=== PATIENT | male | born 1990 | race Caucasian/White ===

== ENCOUNTER 2018-09-07 13:43 | Emergency (ER) | payer OTHER ==
[2018-09-07 13:44] VITALS: BMI 21.2
[2018-09-07] MEDS ORDERED: cefTRIAXone (Rocephin) 250 mg Inj IM STA (14:06)
--- NOTE | 2018-09-07 14:20 | ED PDOC ---
Arrival/HPI - General Chief Complaint: Male Genitourinary Time Seen by Provider: 09/07/18 13:46 Historian: Patient - History of Present Illness Narrative History of Present Illness (Text): 09/07/18 14:15 27 yo male c/o testicular pain x 1 week. States there is a generalized testicular pain with swelling of his testicles. No groin pain. There is while clear discharge he's getting from his penis. He has protected sex typically but recently had oral sex without protection. He denies any abdominal or back pain. No dyuria, frequency or urgency. No fever, chills or bodyaches. PMD: Dr. Live Past Medical History - Provider Review Nursing Documentation Reviewed: Yes - Infectious Disease Hx of Infectious Diseases: None - Tetanus Immunization Tetanus Immunization: Up to Date - Past Medical History Past Medical History: No Previous - Cardiac Hx Cardiac Disorders: No - Pulmonary Hx Respiratory Disorders: No - Neurological Hx Neurological Disorder: No - HEENT Hx HEENT Disorder: No - Renal Hx Renal Disorder: No Hx Kidney Stones: Yes (both side) - Endocrine/Metabolic Hx Endocrine Disorders: No - Hematological/Oncological Hx Blood Disorders: No - Integumentary Hx Dermatological Disorder: No - Musculoskeletal/Rheumatological Hx Musculoskeletal Disorders: No - Gastrointestinal Hx Gastrointestinal Disorders: No - Genitourinary/Gynecological Hx Genitourinary Disorders: No - Psychiatric Hx Psychophysiologic Disorder: No Hx Depression: No Hx Emotional Abuse: No Hx Physical Abuse: No Hx Substance Use: No - Surgical History Hx Appendectomy: Yes Hx Orthopedic Surgery: Yes (thumb tendon) - Suicidal Assessment Feels Threatened In Home Enviroment: No Family/Social History - Physician Review Nursing Documentation Reviewed: Yes Family/Social History: No Known Family HX Smoking Status: Light Smoker < 10 Cigarettes Daily Hx Alcohol Use: Yes Frequency of alcohol use: Socially Hx Substance Use: No Hx Substance Use Treatment: No Allergies/Home Meds Allergies/Adverse Reactions: Allergies amoxicillin Allergy (Verified 09/07/18 13:58) ANAPHYLAXIS peanut Allergy (Verified 09/07/18 13:58) ANAPHYLAXIS Review of Systems - Review of Systems Constitutional: Normal Eyes: Normal ENT: Normal Respiratory: Normal Cardiovascular: Normal Gastrointestinal: Normal. absent: Abdominal Pain Genitourinary Male: Other (testicular pain, testicular swelling, penile discharge) Musculoskeletal: Normal. absent: Back Pain Skin: Normal Neurological: Normal Endocrine: Normal Hemo/Lymphatic: Normal Psychiatric: Normal Physical Exam Vital Signs Temp Pulse Resp BP Pulse Ox 09/07/18 13:56 98.9 F 98 H 18 154/88 H 98 Temperature: Afebrile Blood Pressure: Hypertensive Pulse: Regular Respiratory Rate: Normal Appearance: Positive for: Well-Appearing, Non-Toxic, Comfortable Pain Distress: None Mental Status: Positive for: Alert and Oriented X 3 - Systems Exam Head: Present: Atraumatic, Normocephalic Pupils: Present: PERRL Extroacular Muscles: Present: EOMI Conjunctiva: Present: Normal Mouth: Present: Moist Mucous Membranes Neck: Present: Normal Range of Motion Respiratory/Chest: Present: Clear to Auscultation, Good Air Exchange. No: Respiratory Distress, Accessory Muscle Use Cardiovascular: Present: Regular Rate and Rhythm, Normal S1, S2. No: Murmurs Abdomen: No: Tenderness, Distention, Peritoneal Signs Genitourinary Male: Present: Normal External Genitalia, Circumcised Penis, Testicle Tenderness (b/l), Testicle Swelling (mild). No: Lesions, Penile Discharge, Penile Swelling, Masses, Erythema, Hernias Back: Present: Normal Inspection Upper Extremity: Present: Normal Inspection. No: Cyanosis, Edema Lower Extremity: Present: Normal Inspection. No: Edema Neurological: Present: GCS=15, CN II-XII Intact, Speech Normal, Motor Func Grossly Intact, Normal Sensory Function Skin: Present: Warm, Dry, Normal Color. No: Rashes Psychiatric: Present: Alert, Oriented x 3, Normal Insight, Normal Concentration Medical Decision Making ED Course and Treatment: 09/07/18 14:22 27 yo male with testicular pain and swelling r/o varicocele vs hydrocele r/o STD -- Labs -- GC/CT -- UA -- Rocephin, Azithromycin -- Patient states when he was a baby had an allergy to Amoxicillin but he received Rocephin last time he was here with no reaction. Reviewed previous note and it's recorded he received Rocephin with no allergic reaction. 09/07/18 15:46 Testicular Ultrasound Accession No. : [id number] Creator : Radha Amato MD IMPRESSION: Bilateral epididymal cysts. Small bilateral hydroceles. 09/07/18 16:24 Case was discussed with Dr. Arvizu, Urology, who recommends Flucanzole 200mg daily x 3 days. First does was given here. Patient was explained US report and lab results. He was advised to buy scrotal support as well. He was advised to follow up with Dr. Arvizu, Urology, and he was given Dr. Mackey' cell to call. - RAD Interpretation Radiology Orders: 09/07/18 14:05 TESTES DUPLEX COMPLETE [US] Stat - Medication Orders Current Medication Orders: Discontinued Medications Azithromycin (Zithromax) 1,000 mg PO STAT STA; Protocol Stop: 09/07/18 14:07 Ceftriaxone Sodium (Rocephin) 250 mg IM STAT STA; Protocol Stop: 09/07/18 14:07 Ibuprofen (Motrin Tab) 600 mg PO STAT STA Stop: 09/07/18 14:07 Disposition/Present on Arrival - Present on Arrival Any Indicators Present on Arrival: No History of DVT/PE: No History of Uncontrolled Diabetes: No Urinary Catheter: No History of Decub. Ulcer: No History Surgical Site Infection Following: None - Disposition Have Diagnosis and Disposition been Completed?: Yes Diagnosis: Bilateral hydrocele, Cyst of epididymis, Candidiasis Disposition: HOME/ ROUTINE Disposition Time: 16:26 Patient Plan: Discharge Patient Problems: Current Active Problems Problem Status Onset Bilateral hydrocele Acute Cyst of epididymis Acute Candidiasis Acute Condition: IMPROVED Discharge Instructions (ExitCare): Hydrocele, Screening for Sexually T ransmitted Infections, Yeast Infection (DC) Additional Instructions: EVETTE SIERRA, thank you for letting us take care of you today. Your provider was Edgard Echols DO and you were treated for Hydrocele, Epidydymal Cysts. The emergency medical care you received today was directed at your acute symptoms. If you were prescribed any medication, please fill it and take as directed. It may take several days for your symptoms to resolve. Return to the Emergency Department if your symptoms worsen, do not improve, or if you have any other problems. Please contact your doctor or call one of the physicians/clinics you have been referred to that are listed on the Patient Visit Information form that is included in your discharge packet. Bring any paperwork you were given at discharge with you along with any medications you are taking to your follow up visit. Our treatment cannot replace ongoing medical care by a primary care provider outside of the emergency department. Thank you for allowing the [facility] team to be part of your care today. If you had an X-Ray or CT scan: A Radiologist will review the ED reading if any change in treatment is needed we will contact you. If you had a blood, urine, or wound culture: It will take several days for the results, if any change in treatment is needed we will contact you. If you had an STI test: It will take 48 hours for the results. Please call after 1 week if you have not heard back. Prescriptions: Fluconazole 200 mg PO DAILY #2 tablet Ibuprofen [Motrin] 600 mg PO Q6 PRN #30 tab PRN Reason: Pain, Moderate (4-7) Referrals: Sb Arvizu MD [Staff Provider] - Follow up with primary Forms: [employer] (Chinese), WORK NOTE
[2018-09-07 14:35] LABS: URINE BILIRUBIN NEGATIVE (NEGATIVE); URINE BLOOD SMALL (NEGATIVE); URINE GLUCOSE (UA) NEGATIVE (NEGATIVE); URINE LEUKOCYTE ESTERASE NEGATIVE Leu/uL (NEGATIVE); URINE PROTEIN NEGATIVE mg/dL (<30 mg/dL); URINE UROBILINOGEN 0.2 E.U./dL (<1 E.U./dL)
[2018-09-07 14:36] LABS: URINE APPEARANCE CLEAR (CLEAR); URINE COLOR YELLOW (YELLOW)
[2018-09-07 14:37] LABS: BASO # 0.05 K/mm3 (0.0-2.0); BASO % 0.6 % (0.0-3.0); EOS # 0.1 (0.0-0.7); EOS % 1.4 % (1.5-5.0); GRAN # 4.9 (1.4-6.5); GRAN % 58.9 % (50.0-68.0); HEMOGLOBIN 14.4 g/dL (14.0-18.0); LYMPH # 2.5 (1.2-3.4); LYMPH % 30.3 % (22.0-35.0); MEAN CELL VOLUME 89.9 fl (80.0-105.0); MEAN CORPUSCULAR HEMOGLOBIN 30.4 pg (25.0-35.0); MEAN CORPUSCULAR HGB CONC 33.8 g/dl (31.0-37.0); MEAN PLATELET VOLUME 10.4 fl (7.0-11.0); MONO # 0.7 (0.1-0.6); MONO % 8.8 % (1.0-6.0); RBC 4.74 10^6/uL (3.5-6.1); RED CELL DISTRIBUTION WIDTH 12.6 % (11.5-14.5); WHITE BLOOD COUNT 8.3 10^3/uL (4.5-11.0)
[2018-09-07 14:41] LABS: BLOOD UREA NITROGEN 13 mg/dL (7-21); CALCIUM 10.1 mg/dL (8.4-10.5); GFR NON-AFRICAN AMERICAN > 60
[2018-09-07 14:43] LABS: URINE AMORPHOUS SEDIMENT MODERATE; URINE BACTERIA MANY (NEG); URINE WBC 0 - 2 /hpf (0-6)
--- NOTE | 2018-09-07 15:47 | US ---
Date of service: 09/07/2018 HISTORY: testicular pain TECHNIQUE: Realtime sonography through the scrotum with color and doppler flow. COMPARISON: None Available. FINDINGS: RIGHT TESTICLE: Measures 4.4 x 1.7 x 2.1 cm. Homogeneous echotexture. Blood flow is demonstrated. RIGHT EPIDIDYMIS: 0.4 x 0.3 x 0.4 cm cyst. LEFT TESTICLE: Measures 5.0 x 2.1 x 2.4 cm. Homogeneous echotexture. Blood flow is demonstrated. LEFT EPIDIDYMIS: 0.4 x 0.4 x 0.3 cm cyst. HYDROCELE: Small bilateral hydroceles. VARICOCELE: None. OTHER FINDINGS: None. IMPRESSION: Bilateral epididymal cysts. Small bilateral hydroceles.
[2018-09-07 16:24] VITALS: BP 129/78; PULSE 89; RESP 19; TEMP 98.1; O2SAT 99
== END 2018-09-07 16:24 | disposition home or self-care (01) ==
LOC: ED 13:43
DX: N43.3 Hydrocele, unspecified (principal); N50.3 Cyst of epididymis; B37.9 Candidiasis, unspecified
CPT/HCPCS: 80048; 81001; 85025; 87491; 87591; 93975; 96372; 99283; J0696

== ENCOUNTER 2018-10-19 14:18 | Emergency (ER) | payer OTHER ==
[2018-10-19 14:18] VITALS: BMI 21.2
[2018-10-19] MEDS ORDERED: Sodium Chloride 0.9% 1,000 ML IV STA (14:45)
[2018-10-19 14:46] VITALS: BP 144/90; PULSE 71; RESP 16; TEMP 98.7; O2SAT 99
[2018-10-19] MEDS ORDERED: Atrop/Hyosc/Scopal/PB Elixir (120 ml) PO STA (14:46)
[2018-10-19] MEDS ORDERED: Alum-Mag Hydrox-Simethicone Susp (30 mL) PO STA (14:46)
[2018-10-19 15:06] LABS: BASO # 0.04 K/mm3 (0.0-2.0); BASO % 0.3 % (0.0-3.0); EOS # 0.1 (0.0-0.7); EOS % 0.7 % (1.5-5.0); GRAN # 12.41 (1.4-6.5); GRAN % 86.7 % (50.0-68.0); HEMOGLOBIN 14.2 g/dL (14.0-18.0); LYMPH # 1.2 (1.2-3.4); LYMPH % 8.3 % (22.0-35.0); MEAN CELL VOLUME 91.2 fl (80.0-105.0); MEAN CORPUSCULAR HEMOGLOBIN 30.4 pg (25.0-35.0); MEAN CORPUSCULAR HGB CONC 33.3 g/dl (31.0-37.0); MEAN PLATELET VOLUME 10.5 fl (7.0-11.0); MONO # 0.6 (0.1-0.6); RBC 4.67 10^6/uL (3.5-6.1); RED CELL DISTRIBUTION WIDTH 12.5 % (11.5-14.5); WHITE BLOOD COUNT 14.3 10^3/uL (4.5-11.0)
[2018-10-19 15:14] LABS: ALB/GLOB RATIO 1.8 (1.1-1.8); ALBUMIN 5.1 g/dL (3.0-4.8); ALT/SGPT 40 U/L (7-56); AMYLASE 61 U/L (35-125); AST/SGOT 28 U/L (17-59); BLOOD UREA NITROGEN 9 mg/dL (7-21); CALCIUM 9.8 mg/dL (8.4-10.5); GFR NON-AFRICAN AMERICAN > 60; LIPASE 128 U/L (23-300)
--- NOTE | 2018-10-19 15:38 | ED PDOC ---
Arrival/HPI - General Chief Complaint: Abdominal Pain Time Seen by Provider: 10/19/18 14:29 Historian: Patient - History of Present Illness Narrative History of Present Illness (Text): 10/19/18 14:45 27 year old male, with medical history of appendectomy and endoscopy last year with negative findings, presents to the ED for evaluation of epigastric pain associated with nausea since this morning. Patient reports onset of symptoms after eating breakfast this morning, unchanged after taking antacids. Patient denies any recent changes in diet or sick contact. Patient denies any fever, chills, vomiting, abdominal pain, chest pain, shortness of breath, cough, or any other complaints. Time/Duration: 4-6 hours Symptom Onset: Gradual Symptom Course: Unchanged Activities at Onset: Light Context: Home Past Medical History - Provider Review Nursing Documentation Reviewed: Yes - Infectious Disease Hx of Infectious Diseases: None - Tetanus Immunization Tetanus Immunization: Up to Date - Past Medical History Past Medical History: No Previous - Cardiac Hx Cardiac Disorders: No - Pulmonary Hx Respiratory Disorders: No - Neurological Hx Neurological Disorder: No - HEENT Hx HEENT Disorder: No - Renal Hx Renal Disorder: No Hx Kidney Stones: Yes (both side) - Endocrine/Metabolic Hx Endocrine Disorders: No - Hematological/Oncological Hx Blood Disorders: No - Integumentary Hx Dermatological Disorder: No - Musculoskeletal/Rheumatological Hx Musculoskeletal Disorders: No - Gastrointestinal Hx Gastrointestinal Disorders: No - Genitourinary/Gynecological Hx Genitourinary Disorders: No - Psychiatric Hx Psychophysiologic Disorder: No Hx Depression: No Hx Emotional Abuse: No Hx Physical Abuse: No Hx Substance Use: No - Surgical History Hx Appendectomy: Yes Hx Orthopedic Surgery: Yes (thumb tendon) - Suicidal Assessment Feels Threatened In Home Enviroment: No Family/Social History - Physician Review Nursing Documentation Reviewed: Yes Family/Social History: Unknown Family HX Smoking Status: Light Smoker < 10 Cigarettes Daily Hx Alcohol Use: Yes Frequency of alcohol use: Socially Hx Substance Use: No Hx Substance Use Treatment: No Allergies/Home Meds Allergies/Adverse Reactions: Allergies amoxicillin Allergy (Verified 09/07/18 13:58) ANAPHYLAXIS peanut Allergy (Verified 09/07/18 13:58) ANAPHYLAXIS Review of Systems - Physician Review All systems were reviewed & negative as marked: Yes - Review of Systems Constitutional: absent: Fevers Respiratory: absent: SOB, Cough Cardiovascular: absent: Chest Pain Gastrointestinal: Abdominal Pain, Nausea. absent: Diarrhea, Vomiting Genitourinary Male: absent: Dysuria, Urinary Output Changes Musculoskeletal: absent: Back Pain, Neck Pain Skin: absent: Rash Neurological: absent: Headache, Dizziness Physical Exam Vital Signs Reviewed: Yes Vital Signs Temp Pulse Resp BP Pulse Ox 10/19/18 14:36 98.7 F 71 16 144/90 99 Temperature: Afebrile Blood Pressure: Normal Pulse: Regular Respiratory Rate: Normal Appearance: Positive for: Well-Appearing, Non-Toxic, Comfortable Pain Distress: None Mental Status: Positive for: Alert and Oriented X 3 - Systems Exam Head: Present: Atraumatic, Normocephalic Pupils: Present: PERRL Extroacular Muscles: Present: EOMI Conjunctiva: Present: Normal Mouth: Present: Moist Mucous Membranes Neck: Present: Normal Range of Motion Respiratory/Chest: Present: Clear to Auscultation, Good Air Exchange. No: Respiratory Distress, Accessory Muscle Use Cardiovascular: Present: Regular Rate and Rhythm, Normal S1, S2. No: Murmurs Abdomen: Present: Tenderness (Mild epigastric tenderness). No: Distention, Per itoneal Signs Upper Extremity: Present: Normal Inspection. No: Cyanosis, Edema Lower Extremity: Present: Normal Inspection. No: Edema Neurological: Present: GCS=15, CN II-XII Intact, Speech Normal Skin: Present: Warm, Dry, Normal Color. No: Rashes Psychiatric: Present: Alert, Oriented x 3, Normal Insight, Normal Concentration Medical Decision Making ED Course and Treatment: 10/19/18 14:45 Impression: 27 year old male presents to the ED for evaluation of epigastric pain and nausea. Plan: -- CT of Abdomen/Pelvis -- Labs -- IV Fluids -- Zofran -- Pepcid -- Elixir -- Urinalysis -- Reassess and disposition Prior Visits: Notes and results from previous visits were reviewed. Progress Notes: 10/19/18 14:45 EKG: Ordered, reviewed, and independently interpreted the EKG. Interpretation : Sinus at 61 bpm with PAC, normal axis, normal interval. 10/19/18 16:37 Leaving Against Medical Advice (AMA): The patient is choosing to leave against medical advice. I have personally explained to the patient that choosing to do so may result in permanent bodily harm, diability, or . I have discussed at great length that without further evaluation and monitoring there may be unforeseen circumstances and/or deterioration causing permanent bodily harm or as a result of their choice. The patient is alert, oriented, and shows the mental capacity to make clear decisions regarding the patients health care at this time. The patient continues to wish to leave against medical advice. In light of the patients decision to leave against medical advice, follow-up has been arranged and the patient is aware of the importance to following up as instructed. The patient has been advised that they should return to the emergency room immediately if they change their mind at any time, or if their condition begins to change or worsen in any way. - Lab Interpretations Lab Results: 10/19/18 14:50 10/19/18 14:50 Lab Results 10/19/18 14:50: Sodium 138, Potassium 4.2, Chloride 101, Carbon Dioxide 29, Anion Gap 12, BUN 9, Creatinine 0.7 L, Est GFR ( Amer) > 60, Est GFR (Non-Af Amer) > 60, Random Glucose 100, Calcium 9.8, Magnesium 1.9, Total B ilirubin 0.5, AST 28, ALT 40, Alkaline Phosphatase 52, Total Protein 7.9, Albumin 5.1 H, Globulin 2.8, Albumin/Globulin Ratio 1.8, Amylase 61, Lipase 128 10/19/18 14:50: WBC 14.3 H D, RBC 4.67, Hgb 14.2, Hct 42.6, MCV 91.2, MCH 30.4, MCHC 33.3, RDW 12.5, Plt Count 292, MPV 10.5, Gran % 86.7 H, Lymph % (Auto) 8.3 L, Story % (Auto) 4.0, Eos % (Auto) 0.7 L, Baso % (Auto) 0.3, Gran # 12.41 H, Lymph # (Auto) 1.2, Story # (Auto) 0.6, Eos # (Auto) 0.1, Baso # (Auto) 0.04 - RAD Interpretation Radiology Orders: 10/19/18 15:09 ABD & PELVIS IV CONTRAST ONLY [CT] Stat - Medication Orders Current Medication Orders: Sodium Chloride (Sodium Chloride 0.9%) 1,000 mls @ 1,000 mls/hr IV .Q1H STA Stop: 10/19/18 15:44 Discontinued Medications Al Hydrox/Mg Hydrox/Simethicone (Maalox Plus 30 Ml) 30 ml PO STAT STA Stop: 10/19/18 14:47 Belladonna/Phenobarbital ( Elixir) 5 ml PO STAT STA Stop: 10/19/18 14:47 Famotidine (Pepcid) 20 mg IVP STAT STA Stop: 10/19/18 14:46 Ondansetron HCl (Zofran Inj) 4 mg IVP STAT STA Stop: 10/19/18 14:46 - Scribe Statement The provider has reviewed the documentation as recorded by the Scribe Valeriano Diaz. All medical record entries made by the Scribe were at my direction and personally dictated by me. I have reviewed the chart and agree that the record accurately reflects my personal performance of the history, physical exam, medical decision making, and the department course for this patient. I have also personally directed, reviewed, and agree with the discharge instructions and disposition. Disposition/Present on Arrival - Present on Arrival Any Indicators Present on Arrival: No History of DVT/PE: No History of Uncontrolled Diabetes: No Urinary Catheter: No History of Decub. Ulcer: No History Surgical Site Infection Following: None - Disposition Have Diagnosis and Disposition been Completed?: Yes Diagnosis: Abdominal pain Disposition: AGAINST MEDICAL ADVICE Disposition Time: 16:20 Patient Problems: Current Active Problems Problem Status Onset Abdominal pain Acute Condition: UNKNOWN Discharge Instructions (ExitCare): Acute Abdomen (Belly Pain) Additional Instructions: EVETTE SIERRA, thank you for letting us take care of you today. The [facility] medical care you received today was directed at your acute symptoms. If you were prescribed any medication, please fill it and take as directed. It may take several days for your symptoms to resolve. Return to the Emergency Department if your symptoms worsen, do not improve, or if you have any other problems. Please contact your doctor or call one of the physicians/clinics you have been referred to that are listed on the Patient Visit Information form that is included in your discharge packet. Bring any paperwork you were given at discharge with you along with any medications you are taking to your follow up visit. Our treatment cannot replace ongoing medical care by a primary care pr ovider outside of the emergency department. Thank you for allowing the [facility] team to be part of your care today. YOU SIGNED OUT AGAINST MEDICAL ADVISE. Follow up with your primary care doctor as soon as possible for re-evaluation and further management. Prescriptions: Famotidine [Pepcid] 20 mg PO BID #14 tab Referrals: Anamaria Virgen MD [Primary Care Provider] - Follow up with primary Forms: [employer] (Turkish)
--- NOTE | 2018-10-20 10:08 | CARD ---
APPROVED REPORT Date of service: 10/19/2018 EKG Measurement Heart [id number] <Conclusion> Normal sinus rhythm with sinus arrhythmia Rightward axis Borderline ECG
== END 2018-10-19 14:40 | disposition left against medical advice (07) ==
LOC: ED 14:18
DX: R10.9 Unspecified abdominal pain (principal); Z87.442 Personal history of urinary calculi
CPT/HCPCS: 80053; 82150; 83690; 83735; 85025; 93005; 96361; 96374; 96375; 99284; J2405; J7030

== ENCOUNTER 2019-02-12 18:31 | Emergency (ER) | payer OTHER ==
[2019-02-12 18:31] VITALS: BMI 21.2
[2019-02-12 18:35] VITALS: RESP 18; TEMP 98.2
--- NOTE | 2019-02-12 20:09 | ED PDOC ---
Arrival/HPI - General Chief Complaint: Groin Pain Time Seen by Provider: 02/12/19 18:47 Historian: Patient - History of Present Illness Narrative History of Present Illness (Text): 02/12/19 20:06 28 year old male, whose past medical history includes hydrocele, presents to the emergency department complaining of testicular pain for the past 2 weeks. Patient has an appointment with urology in 2 days, Patient denies any fever, ch ills, chest pain, shortness of breath, nausea, vomiting, diarrhea, back pain, neck pain, headache, dizziness, or any other complaints. 02/12/19 20:58 Time/Duration: Other (2 weeks) Symptom Onset: Gradual Symptom Course: Unchanged Activities at Onset: Light Context: Home Past Medical History - Provider Review Nursing Documentation Reviewed: Yes Primary Care Provider: Marilynn Anguiano - Infectious Disease Hx of Infectious Diseases: None - Tetanus Immunization Tetanus Immunization: Up to Date - Past Medical History Past Medical History: No Previous - Cardiac Hx Cardiac Disorders: No - Pulmonary Hx Respiratory Disorders: No - Neurological Hx Neurological Disorder: No - HEENT Hx HEENT Disorder: No - Renal Hx Renal Disorder: No Hx Kidney Stones: Yes (both side) - Endocrine/Metabolic Hx Endocrine Disorders: No - Hematological/Oncological Hx Blood Disorders: No - Integumentary Hx Dermatological Disorder: No - Musculoskeletal/Rheumatological Hx Musculoskeletal Disorders: No - Gastrointestinal Hx Gastrointestinal Disorders: No - Genitourinary/Gynecological Hx Genitourinary Disorders: No - Psychiatric Hx Psychophysiologic Disorder: No Hx Depression: No Hx Emotional Abuse: No Hx Physical Abuse: No Hx Substance Use: Yes - Surgical History Hx Appendectomy: Yes Hx Orthopedic Surgery: Yes (thumb tendon) - Anesthesia Hx Anesthesia: Yes Hx Anesthesia Reactions: No Hx Malignant Hyperthermia: No - Suicidal Assessment Feels Threatened In Home Enviroment: No Family/Social History - Physician Review Nursing Documentation Reviewed: Yes Family/Social History: No Known Family HX Smoking Status: Former Smoker Hx Alcohol Use: Yes Frequency of alcohol use: Socially Hx Substance Use: Yes Substance used: marijuana Hx Substance Use Treatment: No Allergies/Home Meds Allergies/Adverse Reactions: Allergies amoxicillin Allergy (Verified 02/12/19 18:33) ANAPHYLAXIS peanut Allergy (Verified 02/12/19 18:33) ANAPHYLAXIS Home Medications: Home Meds Medication Instructions Recorded Confirmed No Known Home Med 02/12/19 02/12/19 Review of Systems - Physician Review All systems were reviewed & negative as marked: Yes - Review of Systems Constitutional: absent: Fevers, Other (chills) Respiratory: absent: SOB Cardiovascular: absent: Chest Pain Gastrointestinal: absent: Diarrhea, Vomiting Genitourinary Male: Other (testicular pain). absent: Dysuria, Frequency, Hematuria Musculoskeletal: absent: Back Pain, Neck Pain Neurological: absent: Headache, Dizziness Physical Exam Vital Signs Reviewed: Yes Vital Signs Temp Pulse Resp BP Pulse Ox 02/12/19 18:35 98.2 F 87 18 135/77 98 Temperature: Afebrile Blood Pressure: Normal Pulse: Regular Respiratory Rate: Normal Appearance: Positive for: Well-Appearing, Non-Toxic, Comfortable Pain Distress: None Mental Status: Positive for: Alert and Oriented X 3 - Systems Exam Head: Present: Atraumatic, Normocephalic Pupils: Present: PERRL Extroacular Muscles: Present: EOMI Conjunctiva: Present: Normal Mouth: Present: Moist Mucous Membranes Neck: Present: Normal Range of Motion Respiratory/Chest: Present: Clear to Auscultation, Good Air Exchange. No: Respiratory Distress, Accessory Muscle Use Cardiovascular: Present: Regular Rate and Rhythm, Normal S1, S2. No: Murmurs Abdomen: No: Tenderness, Distention, Peritoneal Signs Genitourinary Male: Present: Testicle Tenderness (minimal testicular tenderness). No: Penile Swelling, Erythema Back: Present: Normal Inspection Upper Extremity: Present: Normal Inspection. No: Cyanosis, Edema Lower Extremity: Present: Normal Inspection. No: Edema Neurological: Present: GCS=15, CN II-XII Intact, Speech Normal Skin: Present: Warm, Dry, Normal Color. No: Rashes Psychiatric: Present: Alert, Oriented x 3, Normal Insight, Normal Concentration Medical Decision Making ED Course and Treatment: 02/12/19 20:08 Impression: 28 year old male presents complaining of testicualr pain for the past 2 weeks. Patient has a history of hydrocele. Plan: -- Labs -- Tylenol -- Urinalysis -- Testes Duplex US -- Reassess and disposition Progress Notes: 02/12/19 20:59 h/o of hydrocele varicole. in er in [place]. no e/o of torison. abd soft no ttp. pain improved. has outpt fu in 2 days. decliens to wait in er to discuss case with urology. - RAD Interpretation Radiology Orders: 02/12/19 18:50 TESTES DUPLEX COMPLETE [US] Stat [employer] Plant Operator: Radiologist - Medication Orders Current Medication Orders: Discontinued Medications Acetaminophen (Tylenol 325mg Tab) 975 mg PO STAT STA Stop: 02/12/19 18:51 - Scribe Statement The provider has reviewed the documentation as recorded by the Scribe Jose A Ybarra Provider Scribe Attestation: All medical record entries made by the Scribe were at my direction and personally dictated by me. I have reviewed the chart and agree that the record accurately reflects my personal performance of the history, physical exam, medical decision making, and the department course for this patient. I have also personally directed, reviewed, and agree with the discharge instructions and disposition. Disposition/Present on Arrival - Present on Arrival Any Indicators Present on Arrival: No History of DVT/PE: No History of Uncontrolled Diabetes: No Urinary Catheter: No History of Decub. Ulcer: No History Surgical Site Infection Following: None - Disposition Have Diagnosis and Disposition been Completed?: Yes Diagnosis: Testicular pain Disposition: HOME/ ROUTINE Disposition Time: 20:00 Condition: STABLE Discharge Instructions (ExitCare): Hydrocele/Varicocele (DC) Additional Instructions: please see specialist. return to er with symptoms or concerns. Referrals: Daniel Burns MD [Staff Provider] - Follow up with primary Sb Arvizu MD [Staff Provider] - Follow up with primary Forms: [employer] (Portuguese)
[2019-02-12 20:28] LABS: URINE BILIRUBIN NEGATIVE (NEGATIVE); URINE BLOOD NEGATIVE (NEGATIVE); URINE GLUCOSE (UA) NEGATIVE (NEGATIVE); URINE LEUKOCYTE ESTERASE NEGATIVE Leu/uL (NEGATIVE); URINE PROTEIN NEGATIVE mg/dL (<30 mg/dL); URINE UROBILINOGEN 0.2 E.U./dL (<1 E.U./dL)
[2019-02-12 20:29] LABS: URINE APPEARANCE CLEAR (CLEAR); URINE COLOR YELLOW (YELLOW)
[2019-02-12 20:37] VITALS: BP 127/75; PULSE 85; O2SAT 100
--- NOTE | 2019-02-13 09:54 | US ---
Date of service: 02/12/2019 HISTORY: testicular pain h/o of hydrocele TECHNIQUE: Realtime sonography through the scrotum with color and doppler flow. COMPARISON: 09/07/2018. Testicular ultrasound. FINDINGS: RIGHT TESTICLE: Measures 1.9 x 4.1 x 2.1 cm. Normal echotexture and flow. RIGHT EPIDIDYMIS: Epididymal head measures 1.3 x 1.2 cm. Redemonstration of epididymal cysts. LEFT TESTICLE: Measures 2.1 x 3 x 4.6 cm. Normal echotexture and flow. LEFT EPIDIDYMIS: Epididymal head measures 0.9 x 1.3 cm. Redemonstration solitary left epididymal cyst 4 x 5 mm. HYDROCELE: Trace right hydrocele. Slightly larger left hydrocele. VARICOCELE: Unilateral, left varicocele. OTHER FINDINGS: None. IMPRESSION: Negative study for epididymitis, orchitis, torsion or testicular mass. Small bilateral hydroceles. Unilateral, left varicocele. Concordant findings (preliminary report) provided by [facility].
== END 2019-02-12 20:41 | disposition home or self-care (01) ==
LOC: ED 18:31
DX: N50.819 Testicular pain, unspecified (principal); Z87.891 Personal history of nicotine dependence